=== PATIENT | female | born 1985 | race African-American/Black ===

== ENCOUNTER 2016-09-26 11:39 | Emergency (ER) ==
[2016-09-26 14:10] LABS: URINE CULTURE PL NEEDED? NO; URINE SOURCE CLEAN CATCH
--- NOTE | 2016-09-26 14:10 | PROVIDER DOCUMENTATION ---
HPI-Musculoskeletal Pain/Inj - GENERAL Source: patient - HX OF PRESENT ILLNESS-MUSKULOSKELTAL Quality of Pain: reports: aching Severity in ED: mild Onset/Duration: last week Timing: still present, intermittent Modifying Factors: improves with: nothing Any recent injury?: No Locality of Occurance: Home Similar Symptoms Previously?: Yes Recently seen or treated by another doctor?: No - BACK & NECK PAIN/INJURY Back/Neck Pain Location: reports: lumbar spine Back/Neck Pain Radiation: denies: headache, shoulders, arm(s), Buttocks, Upper Legs, Lower Legs, Feet Context / Method of Injury: reports: unknown Associated Symptoms: reports: denies symptoms History of Chronic Neck or Back Pain?: No - TRUNK INJURY Location of Injury(s)/Pain: reports: abdomen (lower and L flank) Context / Method of Injury: reports: none Associated Symptoms: denies: anxiety, arm pain, back/neck pain, chest pain, nausea/vomiting, shortness of breath, sensory/motor loss, pain with breathing <Katiana Calvin - Last Filed: 09/26/16 15:03> <Kevin Hedrick I - Last Filed: 09/26/16 15:28> - GENERAL Chief Complaint: Back Pain Stated Complaint: BACK/ABD PAIN Time Seen by Provider: 09/26/16 13:41 - HX OF PRESENT ILLNESS-MUSKULOSKELTAL Nature of Presenting Problem: Pt is 31 y/o F presents to the ED with back pain, L side flank pain, and lower abdominal pain. Pt states pain has been present for one week. Pt denies burning or frequent urination. (Katiana Calvin) Review of Systems - Adult - REVIEW OF SYSTEMS - ADULT Constitutional: denies: chills, fever Eyes: denies: decreased vision, blurred vision, double vision Ears, Nose, Mouth & Throat: denies: ear pain, nose pain, loose teeth, throat pain Cardiovascular: denies: chest pain, heart murmur, irregular heart rate Respiratory: denies: cough, shortness of breath, wheezing Gastrointestinal: reports: abdominal pain (lower). denies: diarrhea, nausea, vomiting Genitourinary: reports: flank pain (L). denies: dysuria, frequency, hematuria, urgency Musculoskeletal: reports: back pain. denies: bone pain, joint pain, neck pain Integumentary: denies: hives, itching Neurological: denies: dizziness/vertigo, headache/migraines Psychiatric: reports: no symptoms reported Endocrine: reports: no symptoms reported Hematologic/Lymphatic: reports: no symptoms reported Allergic/Immunologic: reports: no symptoms reported All Other Systems: Reviewed and Negative <Katiana Calvin - Last Filed: 09/26/16 15:03> Past History - Adult - PAST MEDICAL HISTORY-ADULT Review of Records: reports: Nursing Assessment Review, Medications Reviewed, Social history reviewed & non-contributory. Major Childhood Illnesses: reports: denies history Cardiovascular: reports: HTN, hyperlipidemia Respiratory: reports: denies history Gastrointestinal: reports: denies history Obstetrical/Gynecological: reports: denies history Genitourinary: reports: denies history Musculoskeletal: reports: denies history Neurological: reports: denies history Endocrine/Immune: reports: Diabetes Other Conditions: reports: denies history - PRIOR SURGERIES/PROCEDURES Surgical/Procedure History: reports: hernia repair - IMMUNIZATION STATUS Childhood Immunizations: See Nurse Assessment Flu Vaccine: See Nurse Assessment - FAMILY HISTORY Family History: reviewed, not pertinent - SOCIAL HISTORY Smoking: denies Substance Use: denies Living Situation: family <Nova Calvini - Last Filed: 09/26/16 15:03> Physical Exam-Injury Related - Physical Exam-Injury Related Initial Vital Signs Reviewed: Yes General Appearance: appears well, alert, no apparent distress, obese Eyes: PERRL/EOMI, pink conjunctivae, fundi clear, no AV nicking Head, Ears, Nose, Mouth & Throat: normocephalic/atraumatic, moist mucous membranes, normal ENT inspection, TMs normal, pharynx normal Neck: non-tender, full range of motion, supple, normal inspection Respiratory: chest non-tender, lungs clear, normal breath sounds, no pleuratic chest pain, no respiratory distress, no accessory muscle use Cardiovascular: normal peripheral pulses, regular rate, rhythm, no edema, no gallop, no JVD, no murmur Abdominal Exam: normal bowel sounds, non tender, soft, no organomegaly, no pulsatile mass Lymphatic: no adenopathy Back Exam: normal inspection, no CVA tenderness, no vertebral tenderness Extremity: normal range of motion, non-tender, normal gait, normal inspection, no pedal edema, no calf tenderness, normal capillary refill Integumentary: normal color, warm/dry Neurologic: grossly normal Psych/Mental Status: normal mood/affect, oriented x 3 <Katiana Calvin - Last Filed: 09/26/16 15:03> Progress <Katiana Calvin - Last Filed: 09/26/16 15:03> <Kevin Hedrick I - Last Filed: 09/26/16 15:28> - PLAN OF CARE/RESULTS Progress/Plan/Lab Results: Laboratory Tests 09/26/16 09/26/16 13:45 13:45 Urine Source CLEAN CATCH Urine Color YELLOW Urine Clarity CLEAR Urine pH 6.5 Ur Specific [place] 1.015 Urine Protein TRACE A Urine Ketones NEGATIVE Urine Blood 4+ Urine Nitrite POSITIVE A Urine Bilirubin NEGATIVE Urine Urobilinogen NORMAL Urine Microscopic RBC 20-40 A Urine WBC 2+ A Urine Microscopic WBC <10 Ur Epithelial Cells <10 Urine Glucose NEGATIVE Urine Test NEGATIVE Orders Category Date Time Status TEST-URINE [PREG] Stat Lab 09/26/16 13:[address] W/POSS RFLX CULT [URINALYSIS] Stat Lab 09/26/16 13:45 Completed Vital Signs - 24 hr 09/26/16 11:45 Temperature 97.2 F L Pulse Rate 77 Respiratory 18 Rate Blood Pressure 169/88 O2 Sat by Pulse 99 Oximetry (Katiana Calvin) Departure <Katiana Calvin - Last Filed: 09/26/16 15:03> - Departure Time of Disposition Order: 15:26 Certified Medical Emergency: Emergent <Kevin Hedrick I - Last Filed: 09/26/16 15:28> - Departure DIAGNOSIS: UTI (urinary tract infection) Disposition: HOME 01 Condition: Stable Prescriptions: Sulfamethoxazole/Trimethoprim [Bactrim Ds Tablet] 1 each PO BID #14 tablet Referrals: Helder Mcgee [Primary Care Provider] - Attestation - Scribe Verification/Attestation Scribe:: Katiana Calvin Acting as Scribe for:: Kevin Hedrick Scribe documention review:: This chart was documented by a scribe and accurately reflects the service the provider performed and the decisions made by the provider. <Katiana Calvin - Last Filed: 09/26/16 15:03> - Physician/ KARLO Attestation Patient care was provided by Advanced Practice Provider:: Yes Advanced Practice Provider documentation review:: The Mid-level provider documentation, treatment plan and medical decision making was reviewed by the physician who agrees with all treatment and medical decision making by the MLP. The physician spent face to face time with patient:: Yes Advanced Practice Provider documentation review:: The physician spent face to face time with this patient and agrees with all MLP documentation, treatment, and medical decision making by the MLP. See provider notes for further information. <Kevin Hedrick I - Last Filed: 09/26/16 15:28> Physician Attestation - Physician Attestation I, the provider, attest to the following statement:: Kevin Hedrick Physician documentation Attestation:: This documentation recorded by the scribe accurately reflects the service I personally performed and the decisions made by me. <Kevin Hedrick I - Last Filed: 09/26/16 15:28>
[2016-09-26 14:16] LABS: BILIRUBIN URINE NEGATIVE (NEGATIVE); BLOOD URINE 4+ (NEGATIVE); CLARITY CLEAR (CLEAR); COLOR YELLOW; GLUCOSE URINE NEGATIVE (NEGATIVE); LEUKOCYTES URINE 2+ (NEGATIVE); NITRITE URINE POSITIVE (NEGATIVE); PH URINE 6.5; PROTEIN URINE TRACE mg/dL (NEGATIVE); SP GRAVITY URINE 1.015; UROBILINOGEN URINE NORMAL
[2016-09-26 14:17] LABS: URINE EPITHELIAL CELLS <10 /HPF (<10); URINE RBC 20-40 /HPF (<10); URINE WBC <10 /HPF (<10)
[2016-09-26 15:40] VITALS: BP 143/079
== END 2016-09-26 15:40 | disposition home or self-care (01) ==
LOC: P.ED 11:39
DX: N39.0 Urinary tract infection, site not specified (principal); M54.9 Dorsalgia, unspecified; R10.30 Lower abdominal pain, unspecified; I10 Essential (primary) hypertension; E78.5 Hyperlipidemia, unspecified; E11.9 Type 2 diabetes mellitus without complications; E66.9 Obesity, unspecified; Z79.899 Other long term (current) drug therapy
CPT/HCPCS: 81001; 81025; 99283